=== PATIENT | male | born 1960 | race Caucasian/White ===

== ENCOUNTER 2016-08-29 05:49 | Emergency (ER) | payer OTHER ==
[~2016-08-29] VITALS: Ht 165.1 cm; Wt 84.4 kg
[2016-08-29 06:41] LABS: EOSINOPHIL (%) 1.7 % (0-5); EOSINOPHIL COUNT 0.1 K/uL (0-0.3); HEMATOCRIT 41.8 % (38.0-50.0); IMMATURE GRANULOCYTE (%) 0.3 % (0.0-0.7); INSTRUMENT ABS NEUTROPHIL CT 4.7 K/uL; LYMPHOCYTE COUNT 1.8 K/uL (1.0-2.8); MCH 31.9 PG (29.0-34.0); MCV 96.8 FL (86-99); MEAN PLAT.VOLUME 9.1 uM^3 (9.0-12.4); MONOCYTE (%) 10.5 % (3-12); MONOCYTE COUNT 0.8 K/uL (0-0.8); NEUTROPHIL (%) 63.2 % (45-76); NEUTROPHIL COUNT 4.7 K/uL (1.8-6.4); PLATELET COUNT 258 K/uL (156-360); RBC DIS.WIDTH-CV 12.6 % (11.8-14.6); RBC DIS.WIDTH-SD 45.2 % (39-53); RED BLOOD COUNT 4.32 M/uL (4.00-5.50); WHITE BLOOD COUNT 7.5 K/uL (4.1-10.2)
[2016-08-29 06:49] LABS: CHLORIDE 109 mEq/L (99-109); POTASSIUM 4.1 mEq/L (3.7-5.4); SODIUM 139 mEq/L (136-147)
[2016-08-29 06:50] LABS: GLUCOSE 93 mg/dL (70-99)
[2016-08-29 06:52] LABS: ANION GAP 6 MEQ/L (2-14)
[2016-08-29 06:54] LABS: GFR ESTIMATE (CALCULATED) > 59 mL/min/
[2016-08-29 06:55] LABS: UREA NITROGEN (BUN) 17 mg/dL (9-23)
[2016-08-29] MEDS ORDERED: PERCOCET 10/1 TABLET PO (07:44)
[2016-08-29] MEDS ORDERED: AUGMENTIN875 MG PO (07:44)
[2016-08-29 08:00] VITALS: BP 135/88
== END 2016-08-29 08:03 | disposition home or self-care (01) ==
LOC: EME 05:49
PROVIDERS: Emergency Medicine
DX: J32.9 Chronic sinusitis, unspecified (principal); E78.5 Hyperlipidemia, unspecified; E03.9 Hypothyroidism, unspecified; R73.03 Prediabetes
CPT/HCPCS: 70450; 70486; 80048; 85025; 99281; 99284